=== PATIENT | female | born 1980 | race Caucasian/White ===

== ENCOUNTER 2024-09-05 20:34 | Emergency (ER) | payer MEDICAID ==
[~2024-09-05] VITALS: Ht 165.1 cm; Wt 75.3 kg
[2024-09-05] MEDS ORDERED: BENZ-38 PO (22:30)
[2024-09-05] MEDS ORDERED: ALBU8HFA PO (22:30)
[2024-09-05] MEDS: ipratropium/albuterol 3ml nebule NEB ONE (23:19)
[2024-09-05 23:31] VITALS: PULSE 99; RESP 21; O2SAT 97
[2024-09-05 23:38] VITALS: BP 138/81; PULSE 99; RESP 16; TEMP 98.5; O2SAT 99
== END 2024-09-05 23:39 | disposition home or self-care (01) ==
LOC: ER 20:35
DX: J20.9 Acute bronchitis, unspecified (principal); J45.909 Unspecified asthma, uncomplicated; Z79.899 Other long term (current) drug therapy
CPT/HCPCS: 94640; 99283